=== PATIENT | female | born 1980 | race Caucasian/White ===

== ENCOUNTER → 2016-06-06 | Day surgery (SDC) | payer BC ==
[~2016-06-06] VITALS: Ht 175.3 cm; Wt 140.0 kg
[~2016-06-06] MED LIST: LIDOCAINE W/EPINEPHRINE 1% 20ML VIAL As Ordered ONE; LIDOCAINE W/EPINEPHRINE 1% 20ML VIAL XX ONE; LR 1,000 ML IV SCH; METOCLOPRAMIDE INJ 10MG/2ML VIAL (J2765) As Ordered ONE; METOCLOPRAMIDE INJ 10MG/2ML VIAL (J2765) IV PRN; MIDAZOLAM INJ 2 MG/2 ML VIAL (J2250) As Ordered ONE; ONDANSETRON 4MG/2ML VIAL (J2405) As Ordered ONE; ONDANSETRON 4MG/2ML VIAL (J2405) IV PRN; PERCOCET 5MG/325MG TAB PO PRN; POLYSPORIN TOPICAL OINTMENT 15GM As Ordered ONE; PROPOFOL 200 MG/20 ML VIAL As Ordered ONE; ROCURONIUM BROMIDE 50 MG/5 ML VIAL As Ordered ONE; dexameTHASONE 4 MG/ML 1ML VIAL (J1100) As Ordered ONE; dexameTHASONE 4 MG/ML 1ML VIAL (J1100) IV ONE; fentaNYL 100 MCG/2 ML INJECTION (J3010) IV PRN; fentaNYL 250 MCG/5 ML INJECTION (J3010) As Ordered ONE
[2016-06-06 17:10] VITALS: BP 118/63
== END | disposition home or self-care (01) ==
LOC: M SDC 10:50
PROVIDERS: ATTEND Otolaryngology
DX: R59.9 Enlarged lymph nodes, unspecified (principal); R51 Headache; H92.09 Otalgia, unspecified ear; Z98.51 Tubal ligation status
CPT/HCPCS: 38510; 88305; J1100; J2250; J2405; J2765; J3010

== ENCOUNTER → 2016-12-26 | Outpatient (REF) | payer BC | LOC: M LAB REF 19:28 | PROVIDERS: ATTEND Physician Assistant | DX: J02.9 Acute pharyngitis, unspecified (principal) ==

== ENCOUNTER → 2017-04-19 | Outpatient (CLI) | payer BC ==
--- NOTE | 2017-04-19 09:36 | REP ---
Clinical: Swelling. Technique: Axial noncontrast images from the thoracic inlet to the upper abdomen with coronal and sagittal re-formations. Comparison 04/14/2016. Findings: Few small lymph nodes are identified in the right supraclavicular region site of palpable mass identified by BB marker. These lymph nodes measure up to 11 mm maximal diameter and are subjectively improved when compared to prior examination dated 04/14/2016. No significant associated adenopathy, mass or fluid collection is appreciated in the region of interest. The bilateral lung romo are well-aerated, essentially symmetric and clear. No consolidation, significant nodule or mass lesion. No pleural effusion/reaction or pneumothorax. The 4 mm subpleural noncalcified nodule in the deep left sulcus (image 96) remains unchanged and likely represent small focal scar. Tracheobronchial tree is patent. No obvious axillary, hilar or mediastinal adenopathy. Thoracic aorta is normal caliber without aneurysm. Heart and pericardium appear normal. Surrounding musculoskeletal structures are intact. Limited upper abdomen demonstrates cholelithiasis and normal bilateral adrenal glands. Impression: 1. In the right supraclavicular region of interest, small lymph nodes measure up to 11 mm maximal diameter and are improved / decreased in size when compared to 04/14/2016. No further fluid collection mass lesion or adenopathy is appreciated at the site of interest. 2. No acute mediastinal or pleuroparenchymal process identified. 3. Previously identified 4 mm noncalcified nodule in the lateral basilar left lower lobe remains unchanged. Given the stability, this likely represents small scar. If clinically warranted follow-up examination in 9-12 months may be obtained to confirm benignity/stability. Signed by Red Mendez MD 04/19/2017 09:27 A
== END ==
LOC: M RAD 07:46
PROVIDERS: ATTEND Thoracic Surgery (Cardiothoracic Vascular Surgery)
DX: R22.1 Localized swelling, mass and lump, neck (principal)

== ENCOUNTER → 2017-06-02 | Outpatient (CLI) | payer BC | LOC: M WUC 08:32 | DX: R59.0 Localized enlarged lymph nodes (principal) | CPT/HCPCS: 36415 ==

== ENCOUNTER → 2022-07-06 | Outpatient (REF) | payer OTHER ==
[2022-07-06 13:46] LABS: BASO # 0.1 10^3/uL (0.0-0.2); BASO % 1.2 % (0.0-1.0); EOS # 0.3 10^3/uL (0.0-0.5); EOS % 4.1 % (0.0-3.0); HEMATOCRIT 44.2 % (36.0-47.0); HEMOGLOBIN 13.4 g/dl (12.0-15.5); LYMPH # 2.6 10^3/uL (1.5-5.0); LYMPH % 30.8 % (24.0-44.0); MEAN CORPUSCULAR HEMOGLOBIN 25.5 pg (27.0-33.0); MEAN CORPUSCULAR HGB CONC 30.3 g/dl (32.0-36.5); MONO # 0.5 10^3/uL (0.0-0.8); MONO % 6.5 % (2.0-8.0); NEUTROPHILS # 4.8 10^3/uL (1.5-8.5); NEUTROPHILS % 57.2 % (36.0-66.0); PLATELET COUNT, AUTOMATED 353 10^3/uL (150-450); RED BLOOD COUNT 5.26 10^6/uL (4.00-5.40); WHITE BLOOD COUNT 8.4 10^3/uL (4.0-10.0)
[2022-07-06 14:21] LABS: ALBUMIN 3.6 G/DL (3.2-5.2); ALKALINE PHOSPHATASE 69 U/L (46-116); ALT/SGPT 32 U/L (7.0-40); AST/SGOT 24 U/L (<34); BILIRUBIN,TOTAL 0.4 MG/DL (0.3-1.2); BLOOD UREA NITROGEN 8 MG/DL (9-23); CALCIUM LEVEL 8.5 MG/DL (8.5-10.1); CARBON DIOXIDE LEVEL 27 MMOL/L (20-31); CHLORIDE LEVEL 106 MMOL/L (98-107); CHOLESTEROL LEVEL 151 MG/DL (<200); CHOLESTEROL RISK RATIO 3.77 (<5); CREATININE FOR GFR 0.63 MG/DL (0.55-1.30); GLOMERULAR FILTRATION RATE > 60.0 (>58); GLUCOSE, FASTING 88 MG/DL (60-100); NON-HDL-C 111 MG/DL; POTASSIUM SERUM 4.5 MMOL/L (3.5-5.1); SODIUM LEVEL 141 MMOL/L (136-145); TOTAL PROTEIN 6.8 G/DL (5.7-8.2); TRIGLYCERIDES LEVEL 100 MG/DL (<150)
[2022-07-06 14:25] LABS: HEMOGLOBIN A1c 4.9 % (4.0-6.0)
[2022-07-06 14:59] LABS: FREE T4 1.08 NG/DL (0.89-1.76); THYROID STIMULATING HORMONE 1.568 uIU/ML (0.55-4.78); TOTAL 25(OH) VITAMIN D 26.8 NG/ML (20.0-100.0)
== END ==
LOC: M LAB REF 12:47
PROVIDERS: ATTEND Nurse Practitioner Family
DX: Z13.228 Encounter for screening for other metabolic disorders (principal)

== ENCOUNTER → 2022-07-18 | Outpatient (CLI) | payer BC, OTHER | LOC: M WHC 14:53 | PROVIDERS: ATTEND Nurse Practitioner Family | DX: Z12.31 Encounter for screening mammogram for malignant neoplasm of breast (principal) ==

== ENCOUNTER → 2022-10-05 | Outpatient (CLI) | payer BC, OTHER | LOC: M PLAIMG 06:46 | PROVIDERS: ATTEND Physician Assistant Surgical | DX: M75.31 Calcific tendinitis of right shoulder (principal); M94.211 Chondromalacia, right shoulder ==

== ENCOUNTER → 2022-12-15 | Outpatient (CLI) | payer BC, OTHER | LOC: M RAD 10:59 | PROVIDERS: ATTEND Nurse Practitioner Family | DX: R59.0 Localized enlarged lymph nodes (principal); R91.1 Solitary pulmonary nodule; K80.20 Calculus of gallbladder without cholecystitis without obstruction ==

== ENCOUNTER → 2023-08-22 | Outpatient (CLI) | payer BC | LOC: M WHC 08:24 | PROVIDERS: ATTEND Nurse Practitioner Family | DX: Z12.31 Encounter for screening mammogram for malignant neoplasm of breast (principal); R59.0 Localized enlarged lymph nodes ==

== ENCOUNTER → 2023-08-23 | Outpatient (REF) | payer BC ==
[2023-08-23 13:40] LABS: ALBUMIN 3.5 G/DL (3.2-5.2); ALKALINE PHOSPHATASE 79 U/L (46-116); ALT/SGPT 36 U/L (7.0-40); AST/SGOT 15 U/L (<34); BILIRUBIN,TOTAL 0.3 MG/DL (0.3-1.2); BLOOD UREA NITROGEN 7 MG/DL (9-23); CALCIUM LEVEL 8.6 MG/DL (8.5-10.1); CARBON DIOXIDE LEVEL 27 MMOL/L (20-31); CHLORIDE LEVEL 105 MMOL/L (98-107); CHOLESTEROL LEVEL 138 MG/DL (<200); CHOLESTEROL RISK RATIO 3.78 (<5); CREATININE FOR GFR 0.64 MG/DL (0.55-1.30); GLOMERULAR FILTRATION RATE > 60.0 (>58); GLUCOSE, FASTING 86 MG/DL (60-100); HDL CHOLESTEROL 36.5 MG/DL (>40); LDL CHOLESTEROL 72.9 MG/DL (<100); MAGNESIUM LEVEL 1.9 MG/DL (1.8-2.4); NON-HDL-C 101.5 MG/DL; POTASSIUM SERUM 4.2 MMOL/L (3.5-5.1); SODIUM LEVEL 139 MMOL/L (136-145); TOTAL PROTEIN 6.6 G/DL (5.7-8.2); TRIGLYCERIDES LEVEL 143 MG/DL (<150)
[2023-08-23 13:41] LABS: THYROID STIMULATING HORMONE 4.721 uIU/ML (0.55-4.78); TOTAL 25(OH) VITAMIN D 23.4 NG/ML (20.0-100.0)
[2023-08-23 13:43] LABS: BASO # 0.1 10^3/uL (0.0-0.2); BASO % 1.2 % (0.0-1.0); EOS # 0.5 10^3/uL (0.0-0.5); EOS % 5.8 % (0.0-3.0); HEMOGLOBIN 12.7 g/dl (12.0-15.5); LYMPH # 2.4 10^3/uL (1.5-5.0); LYMPH % 28.4 % (24.0-44.0); MEAN CORPUSCULAR HEMOGLOBIN 24.5 pg (27.0-33.0); MONO # 0.7 10^3/uL (0.0-0.8); MONO % 7.8 % (2.0-8.0); NEUTROPHILS # 4.8 10^3/uL (1.5-8.5); NEUTROPHILS % 56.6 % (36.0-66.0); PLATELET COUNT, AUTOMATED 374 10^3/uL (150-450); RED BLOOD COUNT 5.19 10^6/uL (4.00-5.40); WHITE BLOOD COUNT 8.4 10^3/uL (4.0-10.0)
[2023-08-23 13:56] LABS: HEMOGLOBIN A1c 5.3 % (4.0-6.0)
== END ==
LOC: M LAB REF 12:40
PROVIDERS: ATTEND Nurse Practitioner Family
DX: E66.9 Obesity, unspecified (principal); E55.9 Vitamin D deficiency, unspecified

== ENCOUNTER 2023-09-17 17:56 | Inpatient (IN) | payer BC ==
[~2023-09-17] VITALS: Ht 172.7 cm; Wt 148.5 kg
[2023-09-17] MEDS ORDERED: FAMO1TAB11 PO (18:16)
[2023-09-18] VITALS (13 sets, daily range): BP systolic 122–139; BP diastolic 66–98; TEMP 96.9–98.4; O2SAT 94–97
[2023-09-18 04:09] LABS: BASO # 0.2 10^3/uL (0.0-0.2); BASO % 1.6 % (0.0-1.0); EOS # 0.9 10^3/uL (0.0-0.5); EOS % 8.5 % (0.0-3.0); HEMATOCRIT 38.3 % (36.0-47.0); HEMOGLOBIN 12.2 g/dl (12.0-15.5); LYMPH % 27.4 % (24.0-44.0); MEAN CORPUSCULAR HEMOGLOBIN 24.6 pg (27.0-33.0); MEAN CORPUSCULAR HGB CONC 31.9 g/dl (32.0-36.5); MEAN CORPUSCULAR VOLUME 77.2 fl (80.0-96.0); MONO # 0.8 10^3/uL (0.0-0.8); MONO % 7.1 % (2.0-8.0); NEUTROPHILS # 5.9 10^3/uL (1.5-8.5); RED BLOOD COUNT 4.96 10^6/uL (4.00-5.40); WHITE BLOOD COUNT 10.8 10^3/uL (4.0-10.0)
[2023-09-18 04:18] LABS: BLOOD UREA NITROGEN 12 MG/DL (9-23); CALCIUM LEVEL 7.9 MG/DL (8.5-10.1); CARBON DIOXIDE LEVEL 25 MMOL/L (20-31); CHLORIDE LEVEL 106 MMOL/L (98-107); CREATININE FOR GFR 0.73 MG/DL (0.55-1.30); GLOMERULAR FILTRATION RATE > 60.0 (>58); GLUCOSE, FASTING 85 MG/DL (60-100); POTASSIUM SERUM 3.9 MMOL/L (3.5-5.1); SODIUM LEVEL 139 MMOL/L (136-145)
[2023-09-18 04:20] LABS: ERYTHROCYTE SEDIMENTATION RATE 36 mm/hr (0-20)
[2023-09-18 04:24] LABS: PLATELET COUNT, AUTOMATED 1 10^3/uL (150-450)
[2023-09-18] MEDS: NS 1,000 ML IV ONE (04:30)
[2023-09-18] MEDS: THERAPEUTIC BATH LOTION 240 ML BTL EXT STA (04:30)
[2023-09-18] MEDS ORDERED: ISOVUE-370 76% 100ML VIAL As Ordered ONE (04:35)
[2023-09-18 08:05] LABS: ALBUMIN 3.3 G/DL (3.2-5.2); ALKALINE PHOSPHATASE 93 U/L (46-116); ALT/SGPT 21 U/L (7.0-40); AST/SGOT 16 U/L (<34); BILIRUBIN,DIRECT 0.1 MG/DL (<0.4); BILIRUBIN,TOTAL 0.4 MG/DL (0.3-1.2); TOTAL PROTEIN 6.9 G/DL (5.7-8.2)
[2023-09-18] MEDS: dexAMETHasone 20MG/5ML VIAL IV ONE (08:29)
[2023-09-18] MEDS ORDERED: dexAMETHasone 20MG/5ML VIAL IV SCH (09:00)
[2023-09-18] MEDS ORDERED: MED REC IN PROGRESS XX SCH (09:00)
[2023-09-18] MEDS ORDERED: VITA200016 PO (09:34)
[2023-09-18] MEDS ORDERED: HOME MED LIST COMPLETE! XX SCH (09:35)
[2023-09-18] MEDS: IMMUNE GLOBULIN 10% 10 GM in IV 1 EA IV SCH (13:27)
[2023-09-18] MEDS: IMMUNE GLOBULIN 10% 120 GM in IV 1 EA IV SCH (15:30)
[2023-09-18] MEDS: guaiFENesin DM LIQ 10ML UD PO ONE (16:54)
[2023-09-18] MEDS ORDERED: FAMOTIDINE 20 MG TAB PO SCH (17:00)
[2023-09-18 18:17] LABS: HEMATOCRIT 38.3 % (36.0-47.0); HEMOGLOBIN 11.8 g/dl (12.0-15.5); MEAN CORPUSCULAR HEMOGLOBIN 24.3 pg (27.0-33.0); MEAN CORPUSCULAR HGB CONC 30.8 g/dl (32.0-36.5); RED BLOOD COUNT 4.85 10^6/uL (4.00-5.40); WHITE BLOOD COUNT 6.5 10^3/uL (4.0-10.0)
[2023-09-18 18:21] LABS: PLATELET COUNT, AUTOMATED 6 10^3/uL (150-450)
[2023-09-18] MEDS: ACETAMINOPHEN 500 MG TAB PO ONE (18:36)
[2023-09-18] MEDS: FAMOTIDINE 20 MG TAB PO SCH (18:39)
[2023-09-18] MEDS: ACETAMINOPHEN TAB 650MG DOSE (2X325MG) PO PRN (23:35)
[2023-09-18] MEDS: guaiFENesin DM LIQ 10ML UD PO PRN (23:49)
[2023-09-19] VITALS (20 sets, daily range): BP systolic 112–150; BP diastolic 70–88; TEMP 96.7–98.6; O2SAT 70–98
[2023-09-19 05:48] LABS: BASO % 0.2 % (0.0-1.0); HEMATOCRIT 35.5 % (36.0-47.0); HEMOGLOBIN 11.2 g/dl (12.0-15.5); LYMPH # 1.5 10^3/uL (1.5-5.0); LYMPH % 13.9 % (24.0-44.0); MEAN CORPUSCULAR HEMOGLOBIN 24.3 pg (27.0-33.0); MEAN CORPUSCULAR HGB CONC 31.5 g/dl (32.0-36.5); MONO # 0.5 10^3/uL (0.0-0.8); MONO % 4.6 % (2.0-8.0); NEUTROPHILS # 8.5 10^3/uL (1.5-8.5); NEUTROPHILS % 79.8 % (36.0-66.0); RED BLOOD COUNT 4.61 10^6/uL (4.00-5.40); WHITE BLOOD COUNT 10.6 10^3/uL (4.0-10.0)
[2023-09-19 05:49] LABS: PLATELET COUNT, AUTOMATED 37 10^3/uL (150-450)
[2023-09-19 06:08] LABS: BLOOD UREA NITROGEN 9 MG/DL (9-23); CALCIUM LEVEL 8.2 MG/DL (8.5-10.1); CARBON DIOXIDE LEVEL 22 MMOL/L (20-31); CHLORIDE LEVEL 107 MMOL/L (98-107); CREATININE FOR GFR 0.44 MG/DL (0.55-1.30); GLOMERULAR FILTRATION RATE > 60.0 (>58); GLUCOSE, FASTING 175 MG/DL (60-100); POTASSIUM SERUM 3.9 MMOL/L (3.5-5.1); SODIUM LEVEL 138 MMOL/L (136-145)
[2023-09-19] MEDS: dexAMETHasone 20MG/5ML VIAL IV SCH (08:04)
[2023-09-19] MEDS ORDERED: IMMUNE GLOBULIN 10% 120 GM in IV 1 EA IV SCH (09:00)
[2023-09-19 15:08] LABS: ANTINUCLEAR ANTIBODIES DIRECT Negative (Negative)
[2023-09-19] MEDS: SIMETHICONE 80MG CHEW TAB PO ONE (15:43)
[2023-09-19] MEDS ORDERED: PILL CUTTER 1 EACH XX ONE (15:45)
[2023-09-19] MEDS: SIMETHICONE 80MG CHEW TAB PO PRN (18:39)
[2023-09-20 05:27] VITALS: BP 128/80; TEMP 97.7; O2SAT 95
[2023-09-20 07:51] LABS: BASO % 0.2 % (0.0-1.0); LYMPH # 2.1 10^3/uL (1.5-5.0); LYMPH % 16.4 % (24.0-44.0); MEAN CORPUSCULAR HEMOGLOBIN 24.4 pg (27.0-33.0); MEAN CORPUSCULAR HGB CONC 31.4 g/dl (32.0-36.5); MEAN CORPUSCULAR VOLUME 77.6 fl (80.0-96.0); MONO % 7.7 % (2.0-8.0); NEUTROPHILS # 9.4 10^3/uL (1.5-8.5); NEUTROPHILS % 74.3 % (36.0-66.0); RED BLOOD COUNT 4.51 10^6/uL (4.00-5.40); WHITE BLOOD COUNT 12.6 10^3/uL (4.0-10.0)
[2023-09-20 07:54] LABS: PLATELET COUNT, AUTOMATED 75 10^3/uL (150-450)
[2023-09-20] MEDS ORDERED: DEXA4TA PO (08:17)
[2023-09-20 08:21] LABS: BLOOD UREA NITROGEN 15 MG/DL (9-23); CALCIUM LEVEL 7.8 MG/DL (8.5-10.1); CARBON DIOXIDE LEVEL 22 MMOL/L (20-31); CHLORIDE LEVEL 106 MMOL/L (98-107); CREATININE FOR GFR 0.55 MG/DL (0.55-1.30); GLOMERULAR FILTRATION RATE > 60.0 (>58); GLUCOSE, FASTING 123 MG/DL (60-100); SODIUM LEVEL 136 MMOL/L (136-145)
[2023-09-20] MEDS: dexAMETHasone 4 MG TAB PO ONE (09:16)
[2023-09-20] MEDS: carisoprodoL 350 MG TAB PO ONE (10:48)
[2023-09-20] MEDS: DICLOFENAC EPOLAMINE 1.3% PATCH TOP SCH (10:50)
== END 2023-09-20 10:58 | disposition home or self-care (01) | DRG 661 ==
LOC: M ED 17:56 → M ED INP 09-18 08:41 → ENRESERV 09-18 15:10 → M PCU 09-18 16:18 → M ED INP 09-19 10:02 → M PCU 09-19 10:03 → M MSPAV 09-19 18:35
PROVIDERS: ADMIT General Practice; ATTEND General Practice
PROC: 30233R1 Transfusion of Nonautologous Platelets into Peripheral Vein, Percutaneous Approach (ICD-10-PCS; principal; 2023-09-18)
DX: D69.3 Immune thrombocytopenic purpura (principal); Z68.41 Body mass index [BMI] 40.0-44.9, adult; E66.01 Morbid (severe) obesity due to excess calories; R91.8 Other nonspecific abnormal finding of lung field; K80.20 Calculus of gallbladder without cholecystitis without obstruction; R59.0 Localized enlarged lymph nodes; Z90.49 Acquired absence of other specified parts of digestive tract

== ENCOUNTER → 2023-11-05 | Outpatient (CLI) | payer BC ==
[~2023-11-05] MED LIST changes: +DEXA4TA PO; +FAMO1TAB11 PO; -LIDOCAINE W/EPINEPHRINE 1% 20ML VIAL As Ordered ONE; -LIDOCAINE W/EPINEPHRINE 1% 20ML VIAL XX ONE; -LR 1,000 ML IV SCH; -METOCLOPRAMIDE INJ 10MG/2ML VIAL (J2765) As Ordered ONE; -METOCLOPRAMIDE INJ 10MG/2ML VIAL (J2765) IV PRN; -MIDAZOLAM INJ 2 MG/2 ML VIAL (J2250) As Ordered ONE; -ONDANSETRON 4MG/2ML VIAL (J2405) As Ordered ONE; -ONDANSETRON 4MG/2ML VIAL (J2405) IV PRN; -PERCOCET 5MG/325MG TAB PO PRN; -POLYSPORIN TOPICAL OINTMENT 15GM As Ordered ONE; -PROPOFOL 200 MG/20 ML VIAL As Ordered ONE; -ROCURONIUM BROMIDE 50 MG/5 ML VIAL As Ordered ONE; +VITA200016 PO; -dexameTHASONE 4 MG/ML 1ML VIAL (J1100) As Ordered ONE; -dexameTHASONE 4 MG/ML 1ML VIAL (J1100) IV ONE; -fentaNYL 100 MCG/2 ML INJECTION (J3010) IV PRN; -fentaNYL 250 MCG/5 ML INJECTION (J3010) As Ordered ONE
[2023-11-07 20:15] LABS: ANGIOTENSIN 1 CONVERTING ENZYM 34 U/L (9-67)
== END ==
LOC: M LAB 09:11
PROVIDERS: ATTEND Internal Medicine Pulmonary Disease
DX: R91.8 Other nonspecific abnormal finding of lung field (principal)

== ENCOUNTER → 2023-11-30 | Outpatient (REF) | payer BC, OTHER ==
[2023-11-30 14:13] LABS: ALBUMIN 3.5 G/DL (3.2-5.2); ALKALINE PHOSPHATASE 75 U/L (46-116); ALT/SGPT 24 U/L (7.0-40); AST/SGOT 14 U/L (<34); BASO # 0.1 10^3/uL (0.0-0.2); BASO % 1.1 % (0.0-1.0); BILIRUBIN,TOTAL 0.4 MG/DL (0.3-1.2); BLOOD UREA NITROGEN 8 MG/DL (9-23); CALCIUM LEVEL 8.8 MG/DL (8.5-10.1); CARBON DIOXIDE LEVEL 25 MMOL/L (20-31); CHLORIDE LEVEL 107 MMOL/L (98-107); CHOLESTEROL LEVEL 162 MG/DL (<200); CHOLESTEROL RISK RATIO 4.62 (<5); CREATININE FOR GFR 0.61 MG/DL (0.55-1.30); EOS # 1.2 10^3/uL (0.0-0.5); EOS % 11.5 % (0.0-3.0); GLOMERULAR FILTRATION RATE > 60.0 (>58); GLUCOSE, FASTING 133 MG/DL (60-100); HEMATOCRIT 43.2 % (36.0-47.0); HEMOGLOBIN 13.3 g/dl (12.0-15.5); LDL CHOLESTEROL 101.6 MG/DL (<100); LYMPH # 2.7 10^3/uL (1.5-5.0); LYMPH % 25.4 % (24.0-44.0); MEAN CORPUSCULAR HEMOGLOBIN 25.3 pg (27.0-33.0); MEAN CORPUSCULAR HGB CONC 30.8 g/dl (32.0-36.5); MEAN CORPUSCULAR VOLUME 82.1 fl (80.0-96.0); MONO # 0.5 10^3/uL (0.0-0.8); MONO % 4.6 % (2.0-8.0); PLATELET COUNT, AUTOMATED 334 10^3/uL (150-450); POTASSIUM SERUM 3.9 MMOL/L (3.5-5.1); RED BLOOD COUNT 5.26 10^6/uL (4.00-5.40); SODIUM LEVEL 139 MMOL/L (136-145); TOTAL PROTEIN 6.6 G/DL (5.7-8.2); TRIGLYCERIDES LEVEL 127 MG/DL (<150); WHITE BLOOD COUNT 10.5 10^3/uL (4.0-10.0)
== END ==
LOC: M LAB REF 12:35
PROVIDERS: ATTEND Family Medicine Addiction Medicine
DX: D69.6 Thrombocytopenia, unspecified (principal); E03.9 Hypothyroidism, unspecified

== ENCOUNTER 2023-12-08 05:41 | Inpatient (IN) | payer BC, OTHER ==
[2023-12-08] VITALS (29 sets, daily range): BP systolic 117–158; BP diastolic 61–94; TEMP 96.8–98.6; O2SAT 92–98
[~2023-12-08] VITALS: Ht 172.7 cm; Wt 152.0 kg
[2023-12-08 07:31] LABS: BASO # 0.1 10^3/uL (0.0-0.2); BASO % 1.2 % (0.0-1.0); EOS # 0.2 10^3/uL (0.0-0.5); EOS % 1.4 % (0.0-3.0); HEMATOCRIT 40.7 % (36.0-47.0); HEMOGLOBIN 12.8 g/dl (12.0-15.5); LYMPH # 3.8 10^3/uL (1.5-5.0); MEAN CORPUSCULAR HEMOGLOBIN 25.5 pg (27.0-33.0); MEAN CORPUSCULAR HGB CONC 31.4 g/dl (32.0-36.5); MEAN CORPUSCULAR VOLUME 81.1 fl (80.0-96.0); MONO % 8.4 % (2.0-8.0); NEUTROPHILS # 6.3 10^3/uL (1.5-8.5); NEUTROPHILS % 55.2 % (36.0-66.0); RED BLOOD COUNT 5.02 10^6/uL (4.00-5.40); WHITE BLOOD COUNT 11.4 10^3/uL (4.0-10.0)
[2023-12-08 07:38] LABS: PLATELET COUNT, AUTOMATED 9 10^3/uL (150-450)
[2023-12-08] MEDS ORDERED: BUDESONIDE 180MCG INHALER (PULMICORT FLEXHALER) INH SCH (08:00)
[2023-12-08] MEDS ORDERED: dexAMETHasone 20MG/5ML VIAL IV SCH (09:00)
[2023-12-08] MEDS ORDERED: FLUT15.820 (09:18)
[2023-12-08] MEDS ORDERED: PRED20TA PO (09:18)
[2023-12-08] MEDS ORDERED: BUDE180INH INH (09:18)
[2023-12-08] MEDS ORDERED: BENZ-18 PO (09:18)
[2023-12-08] MEDS ORDERED: FERR325T3 PO (09:20)
[2023-12-08] MEDS ORDERED: CETI-24 PO (09:20)
[2023-12-08] MEDS: dexAMETHasone 20MG/5ML VIAL IV ONE (09:22)
[2023-12-08] MEDS ORDERED: HOME MED LIST COMPLETE! XX SCH (09:25)
[2023-12-08] MEDS ORDERED: MAALOX 30 ML SUSP *UDC PO PRN (09:55)
[2023-12-08] MEDS ORDERED: IMMUNE GLOBULIN 10% 0 GM in IV 1 EA IV SCH (09:55)
[2023-12-08] MEDS ORDERED: MOM 30ML SUSPENSION UDC PO PRN (09:55)
[2023-12-08 11:27] LABS: BLOOD UREA NITROGEN 11 MG/DL (9-23); CALCIUM LEVEL 8.2 MG/DL (8.5-10.1); CARBON DIOXIDE LEVEL 25 MMOL/L (20-31); CHLORIDE LEVEL 109 MMOL/L (98-107); GLOMERULAR FILTRATION RATE > 60.0 (>58); GLUCOSE, FASTING 105 MG/DL (60-100); POTASSIUM SERUM 3.5 MMOL/L (3.5-5.1); SODIUM LEVEL 142 MMOL/L (136-145)
[2023-12-08] MEDS: guaiFENesin ER TABLET 600 MG TAB PO SCH (11:31)
[2023-12-08] MEDS: BENZONATATE 100MG CAPSULE PO SCH (11:32)
[2023-12-08] MEDS: IMMUNE GLOBULIN 10% 20 GM in IV 1 EA IV ONE (15:27)
[2023-12-08] MEDS: IMMUNE GLOBULIN 10% 80 GM in IV 1 EA IV ONE (17:45)
[2023-12-08] MEDS: FERROUS SULFATE 325MG TAB PO SCH (20:09)
[2023-12-08] MEDS: BUDESONIDE 180MCG INHALER (PULMICORT FLEXHALER) INH SCH (20:27)
[2023-12-08] MEDS: FLUTICASONE PROP 0.05% NASAL SPRAY 16 GM (FLONASE) NARES SCH (21:00)
[2023-12-09] VITALS (18 sets, daily range): BP systolic 125–153; BP diastolic 63–84; TEMP 97–98.3; O2SAT 93–97
[2023-12-09] MEDS: CALCIUM CARBONATE 500 MG CHEW U/D PO PRN (02:04)
[2023-12-09 07:30] LABS: BASO % 0.1 % (0.0-1.0); HEMATOCRIT 41.4 % (36.0-47.0); LYMPH # 2.5 10^3/uL (1.5-5.0); MEAN CORPUSCULAR HEMOGLOBIN 25.5 pg (27.0-33.0); MEAN CORPUSCULAR HGB CONC 31.4 g/dl (32.0-36.5); MEAN CORPUSCULAR VOLUME 81.3 fl (80.0-96.0); MONO # 0.5 10^3/uL (0.0-0.8); MONO % 4.3 % (2.0-8.0); NEUTROPHILS # 9.2 10^3/uL (1.5-8.5); NEUTROPHILS % 73.9 % (36.0-66.0); RED BLOOD COUNT 5.09 10^6/uL (4.00-5.40); WHITE BLOOD COUNT 12.4 10^3/uL (4.0-10.0)
[2023-12-09 07:42] LABS: PLATELET COUNT, AUTOMATED 39 10^3/uL (150-450)
[2023-12-09 07:57] LABS: BLOOD UREA NITROGEN 13 MG/DL (9-23); CALCIUM LEVEL 8.8 MG/DL (8.5-10.1); CARBON DIOXIDE LEVEL 23 MMOL/L (20-31); CHLORIDE LEVEL 107 MMOL/L (98-107); CREATININE FOR GFR 0.51 MG/DL (0.55-1.30); GLOMERULAR FILTRATION RATE > 60.0 (>58); GLUCOSE, FASTING 119 MG/DL (60-100); MAGNESIUM LEVEL 2.1 MG/DL (1.8-2.4); SODIUM LEVEL 138 MMOL/L (136-145)
[2023-12-09] MEDS: ACETYLCYSTEINE 10% 30ML VIAL INH SCH (08:00)
[2023-12-09] MEDS: dexAMETHasone 20MG/5ML VIAL IV SCH (08:08)
[2023-12-09] MEDS: FAMOTIDINE 20 MG TAB PO SCH (08:25)
[2023-12-09] MEDS ORDERED: ISOVUE-370 76% 100ML VIAL As Ordered ONE (10:11)
[2023-12-09] MEDS: ALBUTEROL SULFATE 2.5MG/0.5ML INH NEB SOLN NEB SCH (10:13)
[2023-12-09] MEDS: IMMUNE GLOBULIN 10% 80 GM in IV 1 EA IV ONE (15:05)
[2023-12-09] MEDS: IMMUNE GLOBULIN 10% 20 GM in IV 1 EA IV ONE (18:46)
[2023-12-09] MEDS: ACETAMINOPHEN TAB 650MG DOSE (2X325MG) PO PRN (18:47)
[2023-12-10] VITALS (17 sets, daily range): BP systolic 125–147; BP diastolic 70–86; TEMP 97.2–97.7; O2SAT 94–98
[2023-12-10 06:33] LABS: BASO % 0.1 % (0.0-1.0); HEMATOCRIT 38.1 % (36.0-47.0); HEMOGLOBIN 11.9 g/dl (12.0-15.5); LYMPH # 2.1 10^3/uL (1.5-5.0); LYMPH % 21.2 % (24.0-44.0); MEAN CORPUSCULAR HEMOGLOBIN 25.8 pg (27.0-33.0); MEAN CORPUSCULAR HGB CONC 31.2 g/dl (32.0-36.5); MEAN CORPUSCULAR VOLUME 82.6 fl (80.0-96.0); MONO # 0.5 10^3/uL (0.0-0.8); MONO % 4.8 % (2.0-8.0); NEUTROPHILS % 71.9 % (36.0-66.0); RED BLOOD COUNT 4.61 10^6/uL (4.00-5.40); WHITE BLOOD COUNT 9.8 10^3/uL (4.0-10.0)
[2023-12-10 06:37] LABS: PLATELET COUNT, AUTOMATED 61 10^3/uL (150-450)
[2023-12-10 09:25] LABS: APPEARANCE, URINE CLEAR (CLEAR); BACTERIA, URINE AUTO NEGATIVE (NEGATIVE); BILIRUBIN, URINE AUTO NEGATIVE (NEGATIVE); BLOOD, URINE BLOOD 2+ (NEGATIVE); COLOR, URINE STRAW (YELLOW); GLUCOSE, URINE (UA) AUTO NEGATIVE (NEGATIVE); KETONE, URINE AUTO NEGATIVE (NEGATIVE); LEUKOCYTE ESTERASE, URINE AUTO NEGATIVE (NEGATIVE); NITRITE, URINE AUTO NEGATIVE (NEGATIVE); PROTEIN, URINE AUTO NEGATIVE (NEGATIVE); RBC, URINE AUTO 0 /HPF (0-3); SPECIFIC GRAVITY URINE AUTO 1.009 (1.002-1.035); SQUAMOUS EPITHELIAL CELL UR AU 3 /HPF (0-6); UROBILINOGEN, URINE AUTO 0.2 mg/dL (0.0-2.0); WBC, URINE AUTO 3 /HPF (0-3)
[2023-12-10] MEDS ORDERED: IMMUNE GLOBULIN 10% 0 GM in IV 1 EA IV SCH (16:00)
[2023-12-10] MEDS: IMMUNE GLOBULIN 10% 20 GM in IV 1 EA IV ONE (16:50)
[2023-12-10] MEDS: IMMUNE GLOBULIN 10% 40 GM in IV 1 EA IV ONE (20:32)
[2023-12-11] VITALS (7 sets, daily range): BP systolic 127–140; BP diastolic 68–79; TEMP 97–97.7; O2SAT 94–98
[2023-12-11] MEDS: IMMUNE GLOBULIN 10% 40 GM in IV 1 EA IV ONE (00:34)
[2023-12-11 05:58] LABS: BASO % 0.1 % (0.0-1.0); HEMATOCRIT 37.6 % (36.0-47.0); HEMOGLOBIN 11.6 g/dl (12.0-15.5); LYMPH % 22.4 % (24.0-44.0); MEAN CORPUSCULAR HEMOGLOBIN 25.6 pg (27.0-33.0); MEAN CORPUSCULAR HGB CONC 30.9 g/dl (32.0-36.5); MONO # 0.5 10^3/uL (0.0-0.8); MONO % 5.4 % (2.0-8.0); NEUTROPHILS # 6.2 10^3/uL (1.5-8.5); NEUTROPHILS % 70.2 % (36.0-66.0); RED BLOOD COUNT 4.53 10^6/uL (4.00-5.40); WHITE BLOOD COUNT 8.9 10^3/uL (4.0-10.0)
[2023-12-11 06:06] LABS: PLATELET COUNT, AUTOMATED 99 10^3/uL (150-450)
[2023-12-11] MEDS ORDERED: DEXA4TA PO (12:20)
[2023-12-12 16:13] LABS: % CD19+ LYMPHS 19.7 % (3.3-25.4); % CD3+ LYMPHS 73.2 % (57.5-86.2); % CD4+ LYMPHS 39.2 % (30.8-58.5); % CD8+ LYMPHS 34.5 % (12.0-35.5); ABS CD19+ LYMPH 453 /uL (12-645); ABS CD8 SUPPRESSOR 794 /uL (109-897); ABSOLUTE CD 3 1684 /uL (622-2402); ABSOLUTE CD4 HELPER 902 /uL (359-1519); BASOPHILS 0 % (Not Estab.); CD4-CD8 RATIO 1.14 (0.92-3.72); COMMENT FOR BASIC CELL IMM PAN Note: (.); EOSINOPHILS 0 % (Not Estab.); HCT 36.7 % (34.0-46.6); HGB 11.8 g/dL (11.1-15.9); LYMPHOCYTES 22 % (Not Estab.); LYMPHOCYTES ABSOLUTE 2.3 x10E3/uL (0.7-3.1); MCH 25.9 pg (26.6-33.0); MCHC 32.2 g/dL (31.5-35.7); MCV 81 fL (79-97); MONOCYTES 5 % (Not Estab.); MONOCYTES ABSOLUTE 0.5 x10E3/uL (0.1-0.9); NEUTROPHILS 72 % (Not Estab.); NEUTROPHILS ABSOLUTE 7.4 x10E3/uL (1.4-7.0); PLT 73 x10E3/uL (150-450); RBC 4.55 x10E6/uL (3.77-5.28); RDW 16.9 % (11.7-15.4); WBC 10.2 x10E3/uL (3.4-10.8)
== END 2023-12-11 13:40 | disposition home or self-care (01) | DRG 661 ==
LOC: M ED 05:41 → M ED INP 09:50 → M PCU 14:12 → M MSPAV 12-09 16:04
PROVIDERS: ADMIT Student in an Organized Health Care Education/Training Program; ATTEND Student in an Organized Health Care Education/Training Program
PROC: 3E0333Z Introduction of Anti-inflammatory into Peripheral Vein, Percutaneous Approach (ICD-10-PCS; principal; 2023-12-08)
DX: D69.3 Immune thrombocytopenic purpura (principal); R04.2 Hemoptysis; E66.01 Morbid (severe) obesity due to excess calories; R91.8 Other nonspecific abnormal finding of lung field; Z11.52 Encounter for screening for COVID-19; Z90.49 Acquired absence of other specified parts of digestive tract; Z79.52 Long term (current) use of systemic steroids; Z79.899 Other long term (current) drug therapy; Z91.018 Allergy to other foods

== ENCOUNTER → 2023-12-14 | Outpatient (CLI) | payer BC ==
[~2023-12-14] MED LIST changes: +BENZ-18 PO; +BUDE180INH INH; +CETI-24 PO; +FERR325T3 PO; +FLUT15.820; +PRED20TA PO
[2023-12-14 11:15] LABS: BASO % 0.2 % (0.0-1.0); HEMATOCRIT 44.7 % (36.0-47.0); HEMOGLOBIN 14.2 g/dl (12.0-15.5); LYMPH # 2.5 10^3/uL (1.5-5.0); LYMPH % 19.3 % (24.0-44.0); MEAN CORPUSCULAR HGB CONC 31.8 g/dl (32.0-36.5); MEAN CORPUSCULAR VOLUME 81.9 fl (80.0-96.0); MONO % 7.5 % (2.0-8.0); NEUTROPHILS % 69.7 % (36.0-66.0); PLATELET COUNT, AUTOMATED 257 10^3/uL (150-450); RED BLOOD COUNT 5.46 10^6/uL (4.00-5.40); WHITE BLOOD COUNT 12.8 10^3/uL (4.0-10.0)
== END ==
LOC: M LAB 09:33
PROVIDERS: ATTEND Student in an Organized Health Care Education/Training Program
DX: D69.3 Immune thrombocytopenic purpura (principal)

== ENCOUNTER → 2023-12-31 | Outpatient (CLI) | payer BC ==
[~2023-12-31] MED LIST changes: +NYST-38 PO; +PROM-188 PO
== END ==
LOC: M SLEEP HO 11:04
PROVIDERS: ATTEND Internal Medicine Pulmonary Disease
DX: G47.33 Obstructive sleep apnea (adult) (pediatric) (principal); R06.83 Snoring

== ENCOUNTER → 2024-01-01 | Outpatient (CLI) | payer BC ==
[2024-01-01 08:34] LABS: BASO % 0.6 % (0.0-1.0); EOS # 0.5 10^3/uL (0.0-0.5); EOS % 7.2 % (0.0-3.0); HEMATOCRIT 42.4 % (36.0-47.0); HEMOGLOBIN 13.5 g/dl (12.0-15.5); LYMPH # 1.9 10^3/uL (1.5-5.0); LYMPH % 29.4 % (24.0-44.0); MEAN CORPUSCULAR HEMOGLOBIN 26.4 pg (27.0-33.0); MEAN CORPUSCULAR HGB CONC 31.8 g/dl (32.0-36.5); MONO # 0.4 10^3/uL (0.0-0.8); MONO % 6.9 % (2.0-8.0); NEUTROPHILS # 3.6 10^3/uL (1.5-8.5); NEUTROPHILS % 55.7 % (36.0-66.0); PLATELET COUNT, AUTOMATED 254 10^3/uL (150-450); RED BLOOD COUNT 5.11 10^6/uL (4.00-5.40); WHITE BLOOD COUNT 6.4 10^3/uL (4.0-10.0)
[2024-01-01 09:18] LABS: ALBUMIN 3.1 G/DL (3.2-5.2); ALKALINE PHOSPHATASE 67 U/L (46-116); ALT/SGPT 28 U/L (7.0-40); AST/SGOT 16 U/L (<34); BILIRUBIN,TOTAL 0.4 MG/DL (0.3-1.2); BLOOD UREA NITROGEN 9 MG/DL (9-23); CALCIUM LEVEL 8.2 MG/DL (8.5-10.1); CARBON DIOXIDE LEVEL 24 MMOL/L (20-31); CHLORIDE LEVEL 108 MMOL/L (98-107); CREATININE FOR GFR 0.53 MG/DL (0.55-1.30); GLOMERULAR FILTRATION RATE > 60.0 (>58); GLUCOSE, FASTING 89 MG/DL (60-100); POTASSIUM SERUM 3.8 MMOL/L (3.5-5.1); SODIUM LEVEL 140 MMOL/L (136-145); TOTAL PROTEIN 6.3 G/DL (5.7-8.2)
== END ==
LOC: M LAB 07:56
PROVIDERS: ATTEND Internal Medicine Medical Oncology
DX: D69.3 Immune thrombocytopenic purpura (principal)

== ENCOUNTER → 2024-01-22 | Outpatient (CLI) | payer BC ==
[~2024-01-22] MED LIST changes: +LIDOCAINE 1% MDV 20ML VIAL As Ordered ONE; +NS 1,000 ML IV SCH
[2024-01-22 12:30] VITALS: TEMP 97.4
[2024-01-22 12:59] LABS: BASO # 0.1 10^3/uL (0.0-0.2); BASO % 1.2 % (0.0-1.0); EOS # 1.5 10^3/uL (0.0-0.5); EOS % 13.7 % (0.0-3.0); HEMATOCRIT 42.9 % (36.0-47.0); LYMPH # 2.3 10^3/uL (1.5-5.0); LYMPH % 21.1 % (24.0-44.0); MEAN CORPUSCULAR HGB CONC 32.6 g/dl (32.0-36.5); MEAN CORPUSCULAR VOLUME 82.7 fl (80.0-96.0); MONO # 0.8 10^3/uL (0.0-0.8); MONO % 7.2 % (2.0-8.0); NEUTROPHILS # 6.2 10^3/uL (1.5-8.5); NEUTROPHILS % 56.5 % (36.0-66.0); PLATELET COUNT, AUTOMATED 351 10^3/uL (150-450); RED BLOOD COUNT 5.19 10^6/uL (4.00-5.40); WHITE BLOOD COUNT 10.9 10^3/uL (4.0-10.0)
[2024-01-22 13:05] VITALS: BP 147/86; O2SAT 97
== END ==
LOC: M IRPRO 12:18
PROVIDERS: ATTEND Specialist
DX: D69.3 Immune thrombocytopenic purpura (principal)

== ENCOUNTER → 2024-01-29 | Outpatient (CLI) | payer BC ==
[~2024-01-29] MED LIST changes: +AMOX500T; +LASI20TA3 PO; -LIDOCAINE 1% MDV 20ML VIAL As Ordered ONE; -NS 1,000 ML IV SCH
== END ==
LOC: M LAB 11:37 → M RAD 11:37
PROVIDERS: ATTEND Internal Medicine Medical Oncology
DX: R05.9 Cough, unspecified (principal); R06.02 Shortness of breath

== ENCOUNTER → 2024-03-18 | Outpatient (CLI) | payer BC ==
[~2024-03-18] MED LIST changes: +BUDE180INH; +OYST1TAB PO; +PROM12.548 PO
[2024-03-18 15:38] LABS: IMMUNOGLOBULIN A 247.7 MG/DL (40-350); IMMUNOGLOBULIN G 971 MG/DL (650-1600)
== END ==
LOC: M LAB 14:12
PROVIDERS: ATTEND Internal Medicine Pulmonary Disease
DX: G47.33 Obstructive sleep apnea (adult) (pediatric) (principal)

== ENCOUNTER → 2024-04-10 | Outpatient (CLI) | payer BC ==
[~2024-04-10] MED LIST changes: +BUDE180A2; +BUDE180A2 INH; -BUDE180INH; -BUDE180INH INH
[2024-04-10 15:08] LABS: COMPLEMENT C3 156.9 MG/DL (90.0-170.0)
[2024-04-10 15:09] LABS: COMPLEMENT C4 21.5 MG/DL (12-36); RHEUMATOID FACTOR QUANT 7.8 IU/ML (<14)
[2024-04-10 15:10] LABS: THYROGLOBULIN ANTIBODY < 15.0 U/ML (<60.0); THYROID STIMULATING HORMONE 2.498 uIU/ML (0.55-4.78); THYROXINE (T4) 7.7 UG/DL (4.5-10.9)
[2024-04-10 15:11] LABS: IMMUNOGLOBULIN E 19.8 IU/ML (0-378); THYROID PEROXIDASE ANTIBODY 34 U/ML (<60.0)
[2024-04-14 10:18] LABS: ANA SCREEN, IFA NEGATIVE (NEGATIVE)
[2024-04-14 15:47] LABS: D002-IGE D FARINAE MITE < 0.10 kU/L (<0.10); E001-IGE CAT EPITHELIUM/DANDER < 0.10 kU/L (<0.10); E005-IGE DOG DANDER/HAIR/EPITH < 0.10 kU/L (<0.10); G003-IGE ORCHARD GRASS 0.19 kU/L (<0.10); G006-IGE TIMOTHY GRASS 0.19 kU/L (<0.10); M003-IGE D pteronyssinus < 0.10 kU/L (<0.10); M006-IGE ALTERNARIA alternata < 0.10 kU/L (<0.10); M009-IGE FUSARIUM proliferatum < 0.10 kU/L (<0.10); T001-IGE MAPLE/BOX ELDER < 0.10 kU/L (<0.10); T005-IGE BEECH (AMERICAN) < 0.10 kU/L (<0.10); T007-IGE OAK, WHITE < 0.10 kU/L (<0.10); T008-IGE ELM, AMERICAN WHITE < 0.10 kU/L (<0.10); T014-IGE COTTONWOOD < 0.10 kU/L (<0.10); T015-IGE ASH, WHITE < 0.10 kU/L (<0.10); T016-IGE PINE, WHITE < 0.10 kU/L (<0.10); W001-IGE RAGWEED, SHORT < 0.10 kU/L (<0.10); W003-IGE RAGWEED, GIANT < 0.10 kU/L (<0.10); W006-IGE MUGWORT < 0.10 kU/L (<0.10); W009-IGE PLANTAIN,ENGLISH < 0.10 kU/L (<0.10); W010-IGE LAMB'S QUARTER < 0.10 kU/L (<0.10); W012-IGE GOLDENROD < 0.10 kU/L (<0.10)
[2024-04-14 17:27] LABS: COMPLEMENT TOTAL (CH50) 59 U/mL (31-60)
== END ==
LOC: M LAB 12:42
PROVIDERS: ATTEND Allergy & Immunology Allergy
DX: L50.1 Idiopathic urticaria (principal); J31.0 Chronic rhinitis; T78.04XA Anaphylactic reaction due to fruits and vegetables, initial encounter; D84.9 Immunodeficiency, unspecified

== ENCOUNTER → 2024-05-26 | Outpatient (CLI) | payer BC | LOC: M LAB 10:43 | PROVIDERS: ATTEND Allergy & Immunology Allergy | DX: D84.9 Immunodeficiency, unspecified (principal) ==

== ENCOUNTER → 2024-06-10 | Outpatient (CLI) | payer BC ==
[~2024-06-10] MED LIST changes: +METHACHOLINE KIT (6 VIAL.NEB PREMIX) INH ONE
== END ==
LOC: M CARPUL 09:28
PROVIDERS: ATTEND Internal Medicine Pulmonary Disease
DX: R05.9 Cough, unspecified (principal)
CPT/HCPCS: 94070; J7674

== ENCOUNTER → 2024-06-18 | Outpatient (REF) | payer BC ==
[~2024-06-18] MED LIST changes: -METHACHOLINE KIT (6 VIAL.NEB PREMIX) INH ONE
[2024-06-18 13:04] LABS: BASO # 0.1 10^3/uL (0.0-0.2); EOS # 0.4 10^3/uL (0.0-0.5); EOS % 4.4 % (0.0-3.0); HEMATOCRIT 43.2 % (36.0-47.0); HEMOGLOBIN 13.7 g/dl (12.0-15.5); LYMPH # 2.3 10^3/uL (1.5-5.0); LYMPH % 28.1 % (24.0-44.0); MEAN CORPUSCULAR HEMOGLOBIN 27.2 pg (27.0-33.0); MEAN CORPUSCULAR HGB CONC 31.7 g/dl (32.0-36.5); MEAN CORPUSCULAR VOLUME 85.7 fl (80.0-96.0); MONO # 0.5 10^3/uL (0.0-0.8); MONO % 5.8 % (2.0-8.0); NEUTROPHILS % 60.5 % (36.0-66.0); PLATELET COUNT, AUTOMATED 245 10^3/uL (150-450); RED BLOOD COUNT 5.04 10^6/uL (4.00-5.40); WHITE BLOOD COUNT 8.2 10^3/uL (4.0-10.0)
[2024-06-18 13:27] LABS: PERCENT SATURATION 28.1 % (13.2-45.0)
[2024-06-18 13:31] LABS: FOLATE 22.3 NG/ML (>5.4)
== END ==
LOC: M LAB REF 12:05
PROVIDERS: ATTEND Nurse Practitioner Family
DX: N92.6 Irregular menstruation, unspecified (principal)

== ENCOUNTER → 2024-08-12 | Outpatient (REF) | payer BC, OTHER ==
[2024-08-12 14:08] LABS: BASO # 0.1 10^3/uL (0.0-0.2); BASO % 1.2 % (0.0-1.0); EOS # 0.5 10^3/uL (0.0-0.5); EOS % 6.5 % (0.0-3.0); HEMATOCRIT 41.5 % (36.0-47.0); HEMOGLOBIN 13.5 g/dl (12.0-15.5); LYMPH # 2.6 10^3/uL (1.5-5.0); LYMPH % 33.2 % (24.0-44.0); MEAN CORPUSCULAR HEMOGLOBIN 27.6 pg (27.0-33.0); MEAN CORPUSCULAR HGB CONC 32.5 g/dl (32.0-36.5); MEAN CORPUSCULAR VOLUME 84.7 fl (80.0-96.0); MONO # 0.5 10^3/uL (0.0-0.8); NEUTROPHILS % 51.8 % (36.0-66.0); PLATELET COUNT, AUTOMATED 311 10^3/uL (150-450); WHITE BLOOD COUNT 7.7 10^3/uL (4.0-10.0)
== END ==
LOC: M LAB REF 12:14
PROVIDERS: ATTEND Nurse Practitioner Family
DX: N92.6 Irregular menstruation, unspecified (principal)

== ENCOUNTER → 2024-09-02 | Outpatient (CLI) | payer BC ==
[~2024-09-02] MED LIST changes: +ALBU8.5H
== END ==
LOC: M RAD 15:20
PROVIDERS: ATTEND Nurse Practitioner Family
DX: B34.9 Viral infection, unspecified (principal)

== ENCOUNTER → 2024-09-11 | Outpatient (CLI) | payer BC | LOC: M RAD 13:47 | PROVIDERS: ATTEND Internal Medicine Medical Oncology | DX: D69.3 Immune thrombocytopenic purpura (principal); R93.89 Abnormal findings on diagnostic imaging of other specified body structures; N88.8 Other specified noninflammatory disorders of cervix uteri ==

== ENCOUNTER → 2024-09-16 | Outpatient (CLI) | payer BC | LOC: M PLAIMG 10:48 | PROVIDERS: ATTEND Otolaryngology | DX: J32.4 Chronic pansinusitis (principal) ==

== ENCOUNTER → 2024-09-24 | Outpatient (CLI) | payer BC ==
[~2024-09-24] MED LIST changes: +PROHANCE 279.3MG/ML 15ML VIAL ONE; +PROHANCE 279.3MG/ML 5ML VIAL ONE
== END ==
LOC: M PLAIMG 07:28
PROVIDERS: ATTEND Otolaryngology
DX: J32.8 Other chronic sinusitis (principal)
CPT/HCPCS: 70553; A9576

== ENCOUNTER → 2024-10-09 | Outpatient (CLI) | payer BC ==
[~2024-10-09] MED LIST changes: -PROHANCE 279.3MG/ML 15ML VIAL ONE; -PROHANCE 279.3MG/ML 5ML VIAL ONE
== END ==
LOC: M PLAIMG 11:30
PROVIDERS: ATTEND Nurse Practitioner Family
DX: R91.8 Other nonspecific abnormal finding of lung field (principal); J84.10 Pulmonary fibrosis, unspecified

== ENCOUNTER → 2024-12-16 | Outpatient (REF) | payer BC ==
[~2024-12-16] MED LIST changes: +METH-1165; +PRED5PAK PO; +TIRZ5PEN3
== END ==
LOC: M PLALAB 12:22
PROVIDERS: ATTEND Advanced Practice Midwife
DX: N93.9 Abnormal uterine and vaginal bleeding, unspecified (principal)

== ENCOUNTER → 2025-02-04 | Outpatient (CLI) | payer BC ==
[2025-02-04 10:53] LABS: BASO # 0.1 10^3/uL (0.0-0.2); BASO % 0.9 % (0.0-1.0); EOS # 0.2 10^3/uL (0.0-0.5); EOS % 1.9 % (0.0-3.0); LYMPH # 2.6 10^3/uL (1.5-5.0); LYMPH % 25.8 % (24.0-44.0); MONO # 0.5 10^3/uL (0.0-0.8); MONO % 5.0 % (2.0-8.0); NEUTROPHILS # 6.7 10^3/uL (1.5-8.5); NEUTROPHILS % 66.2 % (36.0-66.0); PLATELET COUNT, AUTOMATED 337 10^3/uL (150-450)
[2025-02-04 11:06] LABS: INR 1.02
[2025-02-04 11:30] LABS: ALT/SGPT 18 U/L (7.0-40); AST/SGOT 15 U/L (<34); CALCIUM LEVEL 8.9 MG/DL (8.5-10.1); CARBON DIOXIDE LEVEL 25 MMOL/L (20-31); CHLORIDE LEVEL 104 MMOL/L (98-107); CREATININE FOR GFR 0.61 MG/DL (0.55-1.30); GLOMERULAR FILTRATION RATE > 90.0 (>58); IRON (FE) 36 UG/DL (50-170); PERCENT SATURATION 12.2 % (13.2-45.0); POTASSIUM SERUM 4.3 MMOL/L (3.5-5.1); SODIUM LEVEL 143 MMOL/L (136-145)
== END ==
LOC: M LAB 09:56
PROVIDERS: ATTEND Nurse Practitioner Family
DX: R58 Hemorrhage, not elsewhere classified (principal)

== ENCOUNTER → 2025-02-04 | Outpatient (REF) | payer BC | LOC: M LAB REF 16:49 | PROVIDERS: ATTEND Nurse Practitioner Family | DX: R35.0 Frequency of micturition (principal) ==

== ENCOUNTER → 2025-03-17 | Outpatient (CLI) | payer BC ==
[~2025-03-17] MED LIST changes: +TIRZ7.5P3
[2025-03-17 14:57] LABS: BASO # 0.1 10^3/uL (0.0-0.2); BASO % 0.8 % (0.0-1.0); EOS # 0.2 10^3/uL (0.0-0.5); EOS % 1.7 % (0.0-3.0); LYMPH # 2.6 10^3/uL (1.5-5.0); LYMPH % 27.4 % (24.0-44.0); MONO # 0.7 10^3/uL (0.0-0.8); MONO % 7.3 % (2.0-8.0); NEUTROPHILS # 5.9 10^3/uL (1.5-8.5); NEUTROPHILS % 62.4 % (36.0-66.0); PLATELET COUNT, AUTOMATED 349 10^3/uL (150-450)
[2025-03-17 15:30] LABS: CALCIUM LEVEL 8.5 MG/DL (8.5-10.1); CARBON DIOXIDE LEVEL 27 MMOL/L (20-31); CHLORIDE LEVEL 106 MMOL/L (98-107); CREATININE FOR GFR 0.63 MG/DL (0.55-1.30); GLOMERULAR FILTRATION RATE > 90.0 (>58); POTASSIUM SERUM 4.6 MMOL/L (3.5-5.1); SODIUM LEVEL 141 MMOL/L (136-145)
== END ==
LOC: M LAB 14:20
PROVIDERS: ATTEND Nurse Practitioner Family
DX: Z01.818 Encounter for other preprocedural examination (principal)

== ENCOUNTER 2025-03-23 11:37 | Outpatient (CLI) | payer BC ==
[~2025-03-23] VITALS: Ht 172.7 cm; Wt 132.7 kg
[~2025-03-23 11:37] MED LIST changes: +ALBUTEROL SULFATE 2.5 MG/0.5 ML INH CONCENTRATE NEB SOLN INH PRN; +EPINEPHrine INJ 1 MG/ML 1ML AMP IM PRN; +diphenhydrAMINE 50 MG/ML VIAL IV PRN
[2025-03-23 12:00] VITALS: BP 109/65; O2SAT 97
[2025-03-23] MEDS: ACETAMINOPHEN 650 MG PO ONE (12:29)
[2025-03-23] MEDS: IRON SUCROSE 500 MG in NS 250 ML OVER 4 HRS IV ONE (12:55)
[2025-03-23 14:00] VITALS: BP 110/66; O2SAT 98
[2025-03-23 15:00] VITALS: BP 117/70; O2SAT 100
[2025-03-23 16:00] VITALS: BP 113/68; O2SAT 98
[2025-03-23 17:10] VITALS: BP 121/71; O2SAT 98
== END 2025-03-23 17:10 | disposition home or self-care (01) ==
LOC: M INFU 11:37
PROVIDERS: ATTEND Student in an Organized Health Care Education/Training Program
DX: D50.9 Iron deficiency anemia, unspecified (principal)
CPT/HCPCS: 96365; 96366; J1756

== ENCOUNTER 2025-04-03 07:50 | Outpatient (CLI) | payer BC ==
[~2025-04-03] VITALS: Ht 170.2 cm; Wt 130.0 kg
[2025-04-03 07:57] VITALS: BP 108/60; O2SAT 96
[2025-04-03] MEDS: IRON SUCROSE 500 MG in NS 250 ML IV ONE (08:13)
[2025-04-03] MEDS: ACETAMINOPHEN 325 MG TAB PO ONE (08:14)
[2025-04-03 09:31] VITALS: BP 99/59; O2SAT 96
[2025-04-03 12:36] VITALS: BP 117/78; O2SAT 97
== END 2025-04-03 12:38 | disposition home or self-care (01) ==
LOC: M INFU 07:50
PROVIDERS: ATTEND Student in an Organized Health Care Education/Training Program
DX: D50.9 Iron deficiency anemia, unspecified (principal)
CPT/HCPCS: 96365; 96366; J1756

== ENCOUNTER 2025-05-12 06:06 | Day surgery (SDC) | payer BC ==
[~2025-05-12] VITALS: Ht 167.6 cm; Wt 132.4 kg
[~2025-05-12 06:06] MED LIST changes: -ALBUTEROL SULFATE 2.5 MG/0.5 ML INH CONCENTRATE NEB SOLN INH PRN; +CALC500C16 PO; -EPINEPHrine INJ 1 MG/ML 1ML AMP IM PRN; +FURO20TA2 PO; +LEVA45AE; -METH-1165; +METH-1165 PO; +OYST500T16 PO; +VITA500C22 PO; -diphenhydrAMINE 50 MG/ML VIAL IV PRN
[2025-05-12] MEDS ORDERED: ACETAMINOPHEN 1000MG/100ML IV BAG As Ordered ONE (06:37)
[2025-05-12] MEDS ORDERED: MIDAZOLAM INJ 2 MG/2 ML VIAL As Ordered ONE (06:39)
[2025-05-12] MEDS ORDERED: dexAMETHasone 4 MG/ML 1 ML VIAL As Ordered ONE (06:40)
[2025-05-12] MEDS ORDERED: ONDANSETRON 4MG/2ML VIAL As Ordered ONE (06:40)
[2025-05-12] MEDS ORDERED: KETOROLAC 30 MG/ML 1 ML VIAL As Ordered ONE (06:40)
[2025-05-12] MEDS ORDERED: LR 1,000 ML IV SCH ×2 (06:40→08:55)
[2025-05-12] MEDS ORDERED: LIDOCAINE 2% 100 MG/5 ML SDV (FOR ANES.) As Ordered ONE (06:40)
[2025-05-12] MEDS ORDERED: ROCURONIUM BROMIDE 50MG/5ML VIAL As Ordered ONE (07:35)
[2025-05-12] MEDS ORDERED: SUGAMMADEX SODIUM 500 MG/5 ML VIAL As Ordered ONE (07:35)
[2025-05-12] MEDS ORDERED: HYDROMORPHONE HCL 0.5 MG/0.5 ML SYRINGE IV PRN (08:55)
[2025-05-12] MEDS: ONDANSETRON 4MG/2ML VIAL IV PRN (09:33)
[2025-05-12 10:18] VITALS: BP 136/85; TEMP 97.6; O2SAT 100
== END 2025-05-12 10:20 | disposition home or self-care (01) ==
LOC: M SDC 06:06
PROVIDERS: ATTEND Obstetrics & Gynecology
DX: N93.9 Abnormal uterine and vaginal bleeding, unspecified (principal); R60.9 Edema, unspecified; K59.00 Constipation, unspecified; K21.9 Gastro-esophageal reflux disease without esophagitis; D64.9 Anemia, unspecified; Z79.899 Other long term (current) drug therapy; Z79.51 Long term (current) use of inhaled steroids; G47.33 Obstructive sleep apnea (adult) (pediatric); Z91.018 Allergy to other foods
CPT/HCPCS: 58563; 88305; J0131; J1100; J1885; J2250; J2405; J3010

== ENCOUNTER 2025-05-20 07:52 | Outpatient (CLI) | payer BC ==
[~2025-05-20] VITALS: Ht 172.7 cm; Wt 129.0 kg
[~2025-05-20 07:52] MED LIST changes: +ALBUTEROL SULFATE 2.5 MG/0.5 ML INH CONCENTRATE NEB SOLN INH PRN; +EPINEPHrine INJ 1 MG/ML 1ML AMP IM PRN; +diphenhydrAMINE 50 MG/ML VIAL IV PRN
[2025-05-20 08:05] VITALS: BP 124/83; O2SAT 98
[2025-05-20] MEDS: ACETAMINOPHEN 650 MG PO ONE (08:10)
[2025-05-20] MEDS: IRON SUCROSE 500 MG in NS 250 ML IV ONE (08:59)
[2025-05-20 10:00] VITALS: BP 108/69; O2SAT 97
[2025-05-20 11:00] VITALS: BP 111/60; O2SAT 99
[2025-05-20 12:00] VITALS: BP 109/67; O2SAT 98
[2025-05-20 13:15] VITALS: BP 119/72; O2SAT 100
== END 2025-05-20 13:15 | disposition home or self-care (01) ==
LOC: M INFU 07:52
PROVIDERS: ATTEND Student in an Organized Health Care Education/Training Program
DX: D50.9 Iron deficiency anemia, unspecified (principal); Z91.018 Allergy to other foods
CPT/HCPCS: 96365; 96366; J1756

== ENCOUNTER 2025-05-21 06:53 | Day surgery (SDC) | payer BC ==
[~2025-05-21] VITALS: Ht 170.2 cm; Wt 131.8 kg
[~2025-05-21 06:53] MED LIST changes: -ALBUTEROL SULFATE 2.5 MG/0.5 ML INH CONCENTRATE NEB SOLN INH PRN; -EPINEPHrine INJ 1 MG/ML 1ML AMP IM PRN; -diphenhydrAMINE 50 MG/ML VIAL IV PRN
[2025-05-21] MEDS ORDERED: GLYCOPYRROLATE INJ 0.2 MG/ML 2 ML VIAL As Ordered ONE (07:41)
[2025-05-21] MEDS ORDERED: LIDOCAINE 2% 100 MG/5 ML SDV (FOR ANES.) As Ordered ONE (07:41)
[2025-05-21 08:41] VITALS: TEMP 97.8
[2025-05-21 09:00] VITALS: BP 110/53; O2SAT 98
== END 2025-05-21 09:00 | disposition home or self-care (01) ==
LOC: M OPP 06:53
PROVIDERS: ATTEND Surgery
DX: K63.5 Polyp of colon (principal); D50.9 Iron deficiency anemia, unspecified; K21.00 Gastro-esophageal reflux disease with esophagitis, without bleeding; K44.9 Diaphragmatic hernia without obstruction or gangrene; K31.89 Other diseases of stomach and duodenum; G47.30 Sleep apnea, unspecified; Z91.018 Allergy to other foods; Z79.51 Long term (current) use of inhaled steroids; Z79.85 Long-term (current) use of injectable non-insulin antidiabetic drugs; Z79.899 Other long term (current) drug therapy
CPT/HCPCS: 43239; 45380; 88305; J1596